=== PATIENT | male | born 1970 | race Caucasian/White ===

== ENCOUNTER → 2017-03-25 | Outpatient (CLI) | payer OTHER ==
[~2017-03-25] MED LIST: ADVAIR 500/501 DISK IH; ALBUTEROL SULF8.5 GM IH; AMLODIPINE-BEN1 EACH PO; BUSPIRONE HCL10 MG PO; BUSPIRONE HCL5 MG PO; DESYREL 150 MG150 MG PO; FLONASE16 G1 BOTH NARES; FORADIL AEROLI12 MCG IH; IBUPROFEN800 MG PO; MOTRIN800 MG PO; OXYCODONE-APAP1 EACH PO; PREDNISONE50 MG PO; PROAIR HFA8.5 GM IH; ROBAXIN500 MG PO; SINGULAIR10 MG PO; SPIRIVA1 INHALATI IH; XOPENEX HF200 INHALA IH; ZITHROMAX500 MG PO
== END | disposition home or self-care (01) ==
LOC: AMB 11:07
PROC: 0JB40ZZ Excision of Right Neck Subcutaneous Tissue and Fascia, Open Approach (ICD-10-PCS; principal; 2017-03-25)
DX: D17.0 Benign lipomatous neoplasm of skin and subcutaneous tissue of head, face and neck (principal); E11.9 Type 2 diabetes mellitus without complications; J44.9 Chronic obstructive pulmonary disease, unspecified; M19.90 Unspecified osteoarthritis, unspecified site; M54.30 Sciatica, unspecified side; F41.1 Generalized anxiety disorder; F32.9 Major depressive disorder, single episode, unspecified; G47.30 Sleep apnea, unspecified; Z82.49 Family history of ischemic heart disease and other diseases of the circulatory system; Z82.5 Family history of asthma and other chronic lower respiratory diseases; Z83.3 Family history of diabetes mellitus
CPT/HCPCS: 88304

== ENCOUNTER 2017-07-07 21:02 | Emergency (ER) | payer OTHER ==
[~2017-07-07] VITALS: Ht 188 cm; Wt 111.4 kg
[2017-07-07 21:54] LABS: HEMATOCRIT 43.2 % (38.0-50.0); HEMOGLOBIN 14.7 G/DL (12.5-16.6); MCH 26.3 PG (29.0-34.0); MCV 77.4 FL (86-99); PLATELET COUNT 231 K/uL (156-360); RBC DIS.WIDTH-CV 12.6 % (11.8-14.6); RBC DIS.WIDTH-SD 35.3 % (39-53); RED BLOOD COUNT 5.58 M/uL (4.00-5.50)
[2017-07-07 22:04] LABS: CHLORIDE 101 mEq/L (99-109); POTASSIUM 3.8 mEq/L (3.7-5.4); SODIUM 134 mEq/L (136-147)
[2017-07-07 22:05] LABS: GLUCOSE 281 mg/dL (70-99)
[2017-07-07 22:09] LABS: CREATININE 0.9 mg/dL (0.6-1.3); GFR ESTIMATE (CALCULATED) > 59 mL/min/ (58.99-99999)
[2017-07-07 22:10] LABS: UREA NITROGEN (BUN) 12 mg/dL (9-23)
[2017-07-07 22:15] LABS: TROP-I INTERPRETATION NEGATIVE; TROPONIN-I < 0.01 ng/mL (0.0-0.30)
[2017-07-07 22:23] LABS: D-DIMER ELISA < 150.00 ng/mLDDU (<230)
[2017-07-08 00:33] LABS: TROP-I INTERPRETATION NEGATIVE; TROPONIN-I < 0.01 ng/mL (0.0-0.30)
[2017-07-08 01:14] VITALS: BP 135/70
== END 2017-07-08 01:14 | disposition home or self-care (01) ==
LOC: EME 21:02
PROVIDERS: Emergency Medicine
DX: R07.9 Chest pain, unspecified (principal); M54.9 Dorsalgia, unspecified; I44.0 Atrioventricular block, first degree; M51.34 Other intervertebral disc degeneration, thoracic region; I10 Essential (primary) hypertension; J44.9 Chronic obstructive pulmonary disease, unspecified; G47.30 Sleep apnea, unspecified; Z82.49 Family history of ischemic heart disease and other diseases of the circulatory system; Z79.51 Long term (current) use of inhaled steroids
CPT/HCPCS: 71046; 71275; 72129; 80048; 84484; 85027; 85379; 93005; 99281; 99285; J7030